=== PATIENT | male | born 1970 | race Caucasian/White ===

== ENCOUNTER 2021-11-15 15:41 | Emergency (ER) | payer OTHER, SELFPAY ==
[2021-11-15 16:08] LABS: Urine Blood Negative (Negative); Urine Glucose Negative (Negative); Urine Protein Negative (Negative)
[2021-11-15] MEDS ORDERED: NA CHLORIDE 0.9% 1,000 ML ONE ×2 (16:19→21:13)
[2021-11-15] MEDS ORDERED: THIAMINE 200 MG/2 ML INJ ONE (16:19)
[2021-11-15] MEDS ORDERED: LORazepam 2 MG/ML VIAL ONE ×3 (16:19→22:23)
[2021-11-15] MEDS ORDERED: FOLIC ACID 5 MG/ML VIAL ONE (16:20)
[2021-11-15] MEDS ORDERED: MULTIVITAMINS 10 ML VIAL (INJ) IV ONE (16:20)
[2021-11-15 16:25] LABS: Barbiturates NEGATIVE (NEGATIVE); Benzodiazepines NEGATIVE (NEGATIVE); Cocaine NEGATIVE (NEGATIVE); METHAMPHETAM NEGATIVE (NEGATIVE); Methadone NEGATIVE (NEGATIVE); Opiates NEGATIVE (NEGATIVE); Phencyclidine NEGATIVE (NEGATIVE); THC Cannibis NEGATIVE (NEGATIVE)
[2021-11-15 16:41] LABS: Absolute Lymphocytes (CBC) 2.5 K/uL (0.7-4.9); Hematocrit 46.3 % (39.6-49.0); Lymphocytes % 39.6 % (15.3-44.8); MCV 84.7 fL (80-100); MPV 6.6 fL (7.6-11.3); RBC Red Blood Cell Count 5.47 M/uL (4.33-5.43)
[2021-11-15 16:49] LABS: Protime INR 0.9
[2021-11-15 16:59] LABS: ALT/SGPT 41 U/L (12-78); AST/SGOT 26 U/L (15-37); Albumin 3.8 g/dL (3.4-5.0); Alkaline Phosphatase 39 U/L (45-117); BUN Blood Urea Nitrogen 4 mg/dL (7-18); Bicarbonate 26 mmol/L (21-32); Bilirubin Direct 0.1 mg/dL (0-0.2); Bilirubin Total 0.3 mg/dL (0.2-1.0); Glomerular Filtration Rate 107 ml/min (=/>90); Glucose Level 97 mg/dL (74-106); Potassium 3.9 mmol/L (3.5-5.1); Protein, Total 8.1 g/dL (6.4-8.2); Sodium Level 143 mmol/L (136-145)
--- NOTE | 2021-11-15 17:15 | EDPHYS ---
Physician Documentation [facility] Name: Aniceto Ledesma II Age: 51 yrs Sex: Male : 1970 Arrival Date: 11/15/2021 Time: 15:49 Bed 13 Private MD: ED Physician Domenic Warren HPI: 11/15 17:11 This 51 yrs old Male presents to ER via EMS with complaints of ETOH abuse, SI. rn 17:11 The patient presents to the emergency department with suicide ideation, and the patient rn has a plan, to shoot self. Onset: The symptoms/episode began/occurred at an unknown time. Associated signs and symptoms: Pertinent positives; PTSD, Pertinent negatives: abdominal pain, chest pain, delusions, fever, hallucinations. Severity of symptoms: At their worst the symptoms were moderate in the emergency department the symptoms are unchanged. The patient has experienced similar episodes in the past. The patient has not recently seen a physician. Historical: - Allergies: 16:39 No Known Allergies; jg9 - Home Meds: 16:39 None [Active]; jg9 - PMHx: 16:39 PTSD; jg9 18:03 Hypertensive disorder; jg9 - Immunization history:: Adult Immunizations not up to date. - Social history:: Smoking status: Patient denies any tobacco usage or history of. - Family history:: not pertinent. - Hospitalizations: : No recent hospitalization is reported. ROS: 17:11 Constitutional: Negative for fever, chills, and weight loss, Eyes: Negative for injury, rn pain, redness, and discharge, Neck: Negative for injury, pain, and swelling, Cardiovascular: Negative for chest pain, palpitations, and edema, Respiratory: Negative for shortness of breath, cough, wheezing, and pleuritic chest pain, Abdomen/GI: Negative for abdominal pain, nausea, vomiting, diarrhea, and constipation, Back: Negative for injury and pain, MS/Extremity: Negative for injury and deformity, Skin: Negative for injury, rash, and discoloration, Neuro: Negative for headache, weakness, numbness, tingling, and seizure. Exam: 17:11 Constitutional: This is a well developed, well nourished patient who is awake, alert, rn and in no acute distress. Sounds and acting intoxicated, but joking and pleasant. Head/Face: Normocephalic, atraumatic. Eyes: Periorbital areas with no swelling, redness, or edema. Cardiovascular: tachycardic, regular Respiratory: No increased work of breathing, no retractions or nasal flaring. Abdomen/GI: Soft, non-tender Skin: Warm, dry MS/ Extremity: Pulses equal, no cyanosis. Neuro: Awake and alert, GCS 15, oriented to person, place, time, and situation. Cranial nerves II-XII grossly intact. Motor strength 5/5 in all extremities. Sensory grossly intact. Vital Signs: 15:50 BP 152 / 96; Pulse 123; Resp 18 S; Temp 98.7; Pulse Ox 94% ; Weight 65.77 kg; Height 5 jg9 ft. 3 in. (160.02 cm) (R); Pain 0/10; 16:30 BP 126 / 99; Pulse 110; Resp 18; Pulse Ox 95% on R/A; jg9 17:00 BP 129 / 85; Pulse 101; Resp 22; Pulse Ox 97% on R/A; jg9 18:00 BP 112 / 95; Pulse 103; Resp 15 S; Pulse Ox 95% on R/A; jg9 19:17 BP 123 / 85; jg9 11/16 00:37 Pulse 68; Resp 14; Pulse Ox 95% on R/A; jb4 09:27 BP 143 / 92; Pulse 73; Resp 15; Temp 98.6; Pulse Ox 95% ; ll1 11/15 15:50 Body Mass Index 25.69 (65.77 kg, 160.02 cm) j9 MDM: 11/15 15:53 Patient medically screened. rn 17:11 Differential diagnosis: PTSD, SI. Data reviewed: vital signs, nurses notes, and as a rn result, I will admit patient. Counseling: I had a detailed discussion with the patient and/or guardian regarding: the historical points, exam findings, and any diagnostic results supporting the discharge/admit diagnosis, the need to transfer to another facility, for higher level of care, [facility] does not immediately have the required specialist. 11/16 09:07 ED course: Pt now much more sober, is apologetic for what happened last night, doesn't rn recall doing most of the things he did, told nurse doesn't even remember saying he was suicidal. Pt now denies suicidal ideations. Pt states sorry that he drank so much and would like to go home. Does not want to be transferred for psychiatric care. Again, denies suicidal ideations or plan. States gets like this when drinks but has never actually attempted to harm himself, blames PTSD from war.. 11/15 15:59 Order name: Acetaminophen; Complete Time: 21:24 rn 11/15 15:59 Order name: Basic Metabolic Panel; Complete Time: : rn 11/15 15:59 Order name: CBC with Diff; Complete Time: : rn 11/15 15:59 Order name: ETOH Level; Complete Time: : rn 11/15 15:59 Order name: Hepatic Function; Complete Time: : rn 11/15 15:59 Order name: PT-INR; Complete Time: : rn 11/15 15:59 Order name: Ptt, Activated; Complete Time: : rn 11/15 15:59 Order name: Salicylate; Complete Time: : rn 11/15 15:59 Order name: Urine Drug Screen; Complete Time: 21: rn 11/15 16:08 Order name: Urine Dipstick-Ancillary; Complete Time: 21:24 EDMS 11/15 16:48 Order name: COVID-19 SARS RT PCR (Document "Date of Onset" if Symptomatic); Complete jg9 Time: 21:11/16 07:23 Order name: ETOH Level kj1 11/15 15:59 Order name: EKG; Complete Time: 15:59 rn 11/15 15:59 Order name: EKG - Nurse/Tech; Complete Time: 16:08 rn 11/15 15:59 Order name: IV Saline Lock; Complete Time: 16:45 rn 11/15 15:59 Order name: Labs collected and sent; Complete Time: 16:46 rn 11/15 15:59 Order name: Suicide Precautions; Complete Time: 16:46 rn 11/15 15:59 Order name: Suicide Screening ([place]); Complete Time: 16:46 rn 11/15 15:59 Order name: Urine Dipstick-Ancillary (obtain specimen); Complete Time: 16:46 rn 11/15 16:54 Order name: Diet Finger Food; Complete Time: 16:54 jg9 11/16 08:51 Order name: Diet Regular: finger foods SI; Complete Time: 08:51 ss Administered Medications: 11/15 16:45 Drug: Ativan (LORazepam) 0.5 mg {Note: RASS--1.} Route: IVP; Site: right antecubital; jg9 17:11 Follow up: Response: No adverse reaction; RASS: Light sedation (-2) jg9 16:45 Drug: Banana Bag - (NS 0.9% 1000 ml, foLIC Acid 1 mg, Thiamine 100 mg, Multivitamin 1 jg9 amp) Route: IV; Rate: calculated rate; Site: right forearm; 20:30 Follow up: Response: No adverse reaction; IV Status: Completed infusion jb4 18:04 Drug: Lisinopril 10 mg Route: PO; jg9 19:17 Follow up: Response: No adverse reaction; Blood pressure is lowered jg9 21:15 Drug: NS 0.9% 1000 ml Route: IV; Rate: 1000 ml; Site: right antecubital; jb4 22:25 Follow up: Response: No adverse reaction; IV Status: Pt ripped IV line, poored fluids jb4 in the floor. 21:41 Drug: Ativan (LORazepam) 1 mg Route: IVP; Site: right antecubital; jb4 11/16 06:24 Follow up: Response: No adverse reaction kd3 11/15 22:24 Drug: Ativan (LORazepam) 1 mg Route: IVP; Site: right antecubital; jb4 11/16 06:24 Follow up: Response: No adverse reaction kd3 11/15 22:39 Drug: Geodon (ziprasidone) 20 mg Route: IM; Site: left gluteus; jb4 11/16 06:24 Follow up: Response: No adverse reaction kd3 Disposition Summary: 11/16/21 09:09 Discharge Ordered Location: Home rn Problem: new(11/16/21 09:09) rn Symptoms: have improved(11/16/21 09:09) rn Condition: Stable(11/16/21 09:09) rn Diagnosis - Alcohol abuse with intoxication, uncomplicated rn Followup: rn - With: Private Physician - When: As needed - Reason: Recheck today's complaints, Re-evaluation by your physician Discharge Instructions: - Discharge Summary Sheet rn - Alcohol Intoxication rn Forms: - Medication Reconciliation Form rn - Thank You Letter rn - Antibiotic admissions rn - Prescription Opioid Use rn Signatures: Dispatcher [employer] EDDomenic Schroeder MD MD cha Nieto, Roman, MD MD rn Bryson, James RN RN jb4 Bridgette Gaitan RN RN jg9 Karrie Graham RN kd3 Corrections: (The following items were deleted from the chart) 11/15 21:26 17:14 Dr. odin mercedes 17:14 Psych Facility odin mercedes 21:26 Dr[facility] daren mercedes 11/16 09:11/15 17:14 Higher level of care rn rn 11/16 09:08 11/15 17:14 Stable rn rn 11/16 09:08 11/15 17:14 new rn rn 11/16 09:08 11/15 17:14 are unchanged rn rn 11/16 09:08 11/15 17:14 Suicidal ideations rn rn 11/16 09:08 11/15 17:14 Alcohol abuse with intoxication, unspecified rn rn 11/16 09:08 11/15 21:26 [facility] daren newby 12 09:08 11/15 21:26 Dr[facility] mercedes rn 11/16 09:08 11/15 21:26 Major depressive disorder, recurrent, moderate daren rn
--- NOTE | 2021-11-15 17:15 | ER ---
Nurse's Notes [facility] Name: Aniceto Ledesma II Age: 51 yrs Sex: Male : 1970 Arrival Date: 11/15/2021 Time: 15:49 Bed 13 Private MD: Diagnosis: Alcohol abuse with intoxication, uncomplicated Presentation: 11/15 15:50 Chief complaint: EMS states: SI with no plan, patient told the police he wanted to hurt jg9 himself, patient here from [facility], ETOH+ and wants help with his addiction. Coronavirus screen: Vaccine status: Patient reports being unvaccinated. Ebola Screen: Patient negative for fever greater than or equal to 101.5 degrees Fahrenheit, and additional compatible Ebola Virus Disease symptoms Patient denies exposure to infectious person. Patient denies travel to an Ebola-affected area in the 21 days before illness onset. Initial Sepsis Screen: Does the patient meet any 2 criteria? No. Patient's initial sepsis screen is negative. Does the patient have a suspected source of infection? No. Patient's initial sepsis screen is negative. Risk Assessment: Do you want to hurt yourself or someone else? Patient reports desire/thoughts of hurting themselves or someone else. Provider notified. Onset of symptoms is unknown. 15:50 Method Of Arrival: EMS: [facility] 9 15:50 Acuity: FRANCISCA 2 kd3 Triage Assessment: 15:50 General: Appears under the influence of alcohol. Behavior is cooperative, anxious, jg9 under the influence. Pain: Denies pain. Historical: - Allergies: 16:39 No Known Allergies; jg9 - Home Meds: 16:39 None [Active]; jg9 - PMHx: 16:39 PTSD; jg9 18:03 Hypertensive disorder; jg9 - Immunization history:: Adult Immunizations not up to date. - Social history:: Smoking status: Patient denies any tobacco usage or history of. - Family history:: not pertinent. - Hospitalizations: : No recent hospitalization is reported. Screenin:41 Abuse screen: Denies threats or abuse. Denies injuries from another. Nutritional jg9 screening: hx of alcohol abuse . Tuberculosis screening: No symptoms or risk factors identified. Fall Risk None identified. Assessment: 16:00 Reassessment: No changes from previously documented assessment. Patient and/or family jg9 updated on plan of care and expected duration. Pain level reassessed. Patient is alert, oriented x 3, equal unlabored respirations, skin warm/dry/pink. 17:00 Reassessment: No changes from previously documented assessment. Patient and/or family jg9 updated on plan of care and expected duration. Pain level reassessed. Patient is alert, oriented x 3, equal unlabored respirations, skin warm/dry/pink. 18:00 Reassessment: No changes from previously documented assessment. Patient and/or family jg9 updated on plan of care and expected duration. Pain level reassessed. Patient is alert, oriented x 3, equal unlabored respirations, skin warm/dry/pink. 19:16 Reassessment: No changes from previously documented assessment. Patient and/or family jg9 updated on plan of care and expected duration. Pain level reassessed. Patient is alert, oriented x 3, equal unlabored respirations, skin warm/dry/pink. 20:30 Reassessment: Pt is restless, but polite. Continues to try to disconnect IV and leave jb4 his room. Must be redirected and reoriented. Continues to try to sneak out when staff is not at the door. 21:45 Reassessment: Patient appears in no apparent distress at this time. Patient and/or jb4 family updated on plan of care and expected duration. Pain level reassessed. Patient is alert, oriented x 3, equal unlabored respirations, skin warm/dry/pink. 22:30 Reassessment: Pt attempted to run out of ED. States " I am trying to find my jb4 [place], have you seen it?" Provider notified, see MAR for orders. 23:00 Reassessment: Pt now resting in bed with eyes closed, respirations are even and jb4 unlabored with no s/s of pain or distress noted. 11/16 03:00 Reassessment: Patient appears in no apparent distress at this time. No changes from jb4 previously documented assessment. Patient and/or family updated on plan of care and expected duration. Pain level reassessed. 04:20 Reassessment: No changes from previously documented assessment. Patient and/or family kd3 updated on plan of care and expected duration. Pain level reassessed. Patient is alert, oriented x 3, equal unlabored respirations, skin warm/dry/pink. 05:30 Reassessment: No changes from previously documented assessment. Patient and/or family kd3 updated on plan of care and expected duration. Pain level reassessed. Patient is alert, oriented x 3, equal unlabored respirations, skin warm/dry/pink. 06:23 Reassessment: Patient appears in no apparent distress at this time. No changes from kd3 previously documented assessment. Patient and/or family updated on plan of care and expected duration. Pain level reassessed. Patient is alert, oriented x 3, equal unlabored respirations, skin warm/dry/pink. 07:00 Reassessment: No changes from previously documented assessment. report received from ll1 evening or night nurse supervisor RN. Sitter requested. 07:40 Reassessment: No changes from previously documented assessment. sitter at bedside. ll1 Still resting. 08:00 Reassessment: No changes from previously documented assessment. Patient and/or family ll1 updated on plan of care and expected duration. Pain level reassessed. Patient is alert, oriented x 3, equal unlabored respirations, skin warm/dry/pink. 08:55 Reassessment: No changes from previously documented assessment. Patient and/or family ll1 updated on plan of care and expected duration. Pain level reassessed. Patient is alert, oriented x 3, equal unlabored respirations, skin warm/dry/pink. not feeling suicidal or homicidal. Dr. Simpson informed. 09:27 Reassessment: No changes from previously documented assessment. Patient and/or family ll1 updated on plan of care and expected duration. Pain level reassessed. Patient is alert, oriented x 3, equal unlabored respirations, skin warm/dry/pink. Psych: 11/15 16:42 [place] Suicide Severity Screening: In the past month, have you wished you were jg9 or wished you could go to sleep and not wake up? Patient responds "No." "In the past month, have you actually had any thoughts of killing yourself?" Patient responds "yes." Based off the client's response additional [place] suicide severity screening questions to be further documented on paper forms. "In your lifetime, have you ever done anything, started to do anything, or prepared to do anything to end your life?" Patient responds "no.". Subjective: Patient's mood is pleasantly happy Delusions are denied, Hallucinations are denied Having thoughts of suicide. Denies suicidal plan. Objective: Patient is cooperative, Speech is slurred, Affect is appropriate, Patient has mutilated themselves by n/a. Interventions: Removed personal items and placed in bag. Patient placed in hospital gown. Searched person for dangerous items. Urine collected and sent for urine drug test. Belonging list filled out. Safety Checks: Personal items have been removed. Door is open. No visitors are present at this time. sitter at door entrance. Patient uses of liquor, daily. Last use was 5 hours ago. Patient does not have a history of DTs. Patient uses benzodiazepines Patient uses cocaine, daily. Commitment: Patient will be a voluntary commitment. Vital Signs: 15:50 BP 152 / 96; Pulse 123; Resp 18 S; Temp 98.7; Pulse Ox 94% ; Weight 65.77 kg; Height 5 jg9 ft. 3 in. (160.02 cm) (R); Pain 0/10; 16:30 BP 126 / 99; Pulse 110; Resp 18; Pulse Ox 95% on R/A; jg9 17:00 BP 129 / 85; Pulse 101; Resp 22; Pulse Ox 97% on R/A; jg9 18:00 BP 112 / 95; Pulse 103; Resp 15 S; Pulse Ox 95% on R/A; jg9 19:17 BP 123 / 85; jg9 11/16 00:37 Pulse 68; Resp 14; Pulse Ox 95% on R/A; jb4 09:27 BP 143 / 92; Pulse 73; Resp 15; Temp 98.6; Pulse Ox 95% ; ll1 11/15 15:50 Body Mass Index 25.69 (65.77 kg, 160.02 cm) jg9 ED Course: 11/15 15:49 Patient arrived in ED. jg9 15:53 Brent Simpson MD is Attending Physician. rn 16:08 Bridgette Gaitan RN is Primary Nurse. jg9 16:30 Inserted saline lock: 22 gauge in right forearm, using aseptic technique. Blood jg9 collected. IV discontinued, patient ripped out accidently. 16:39 Triage completed. jg9 16:42 Arm band placed on right wrist. jg9 16:42 Patient has correct armband on for positive identification. Bed in low position. Call jg9 light in reach. Side rails up X 1. 19:15 Inserted saline lock: 20 gauge in right antecubital area, using aseptic technique. j9 21:24 Attending Physician role handed off by Brent Simpson MD [facility] 21:24 Domenic Warren MD is Attending Physician. [facility] 11/16 09:27 No provider procedures requiring assistance completed. IV discontinued, intact, ll1 bleeding controlled, No redness/swelling at site. Pressure dressing applied. Administered Medications: 11/15 16:45 Drug: Ativan (LORazepam) 0.5 mg {Note: RASS--1.} Route: IVP; Site: right antecubital; j9 17:11 Follow up: Response: No adverse reaction; RASS: Light sedation (-2) 9 16:45 Drug: Banana Bag - (NS 0.9% 1000 ml, foLIC Acid 1 mg, Thiamine 100 mg, Multivitamin 1 jg9 amp) Route: IV; Rate: calculated rate; Site: right forearm; 20:30 Follow up: Response: No adverse reaction; IV Status: Completed infusion 4 18:04 Drug: Lisinopril 10 mg Route: PO; j9 19:17 Follow up: Response: No adverse reaction; Blood pressure is lowered 9 21:15 Drug: NS 0.9% 1000 ml Route: IV; Rate: 1000 ml; Site: right antecubital; jb4 22:25 Follow up: Response: No adverse reaction; IV Status: Pt ripped IV line, poored fluids jb4 in the floor. 21:41 Drug: Ativan (LORazepam) 1 mg Route: IVP; Site: right antecubital; 4 11/16 06:24 Follow up: Response: No adverse reaction 3 11/15 22:24 Drug: Ativan (LORazepam) 1 mg Route: IVP; Site: right antecubital; 4 11/16 06:24 Follow up: Response: No adverse reaction 3 11/15 22:39 Drug: Geodon (ziprasidone) 20 mg Route: IM; Site: left gluteus; jb4 11/16 06:24 Follow up: Response: No adverse reaction kd3 Medication: 06:23 VIS not applicable for this client. kd3 Outcome: 11/15 17:14 ER care complete, transfer ordered by . odin 11/16 09:09 Discharge ordered by . odin :28 Discharged to home ambulatory. ll1 :28 Condition: stable 09:28 Discharge instructions given to patient, Instructed on discharge instructions, follow up and referral plans. Demonstrated understanding of instructions, follow-up care. 09:28 Patient left the ED. ll1 Signatures: Domenic Warren MD MD cha Nieto, Roman, MD MD rn Bryson, James RN RN jb4 Stuart Velez RN RN ll1 Karrie Graham RN RN kd3 Bridgette Gaitan RN RN jg9 Corrections: (The following items were deleted from the chart) 11/15 16:46 16:15 NS 0.9% 1000 ml IV at 1000 ml in right femoral jg9 jg9 19:16 16:30 Inserted saline lock: 22 gauge in right forearm, using aseptic technique. Blood jg9 collected. jg9 19:27 15:50 Acuity: FRANCISCA 3 jg9 kd3
[2021-11-15] MEDS ORDERED: lisinopriL 10 MG TAB ONE (18:09)
[2021-11-15] MEDS ORDERED: lisinopriL 20 MG TAB ONE (18:09)
[2021-11-15] MEDS ORDERED: ZIPRASIDONE MESYLA 20 MG/VIAL IM ONE (22:35)
[2021-11-15] MEDS ORDERED: WATER FOR INJ,STERILE 10 ML ONE (22:35)
--- NOTE | 2021-11-16 08:21 | EKG ---
Test Date: 2021-11-15 Test Time: 16:01:51 Masonry Teacher: DARRIAN MEASUREMENT RESULTS: Intervals: Rate: 114 ID: [id number] QRSD: 86 QT: 320 QTc: 441 [place]: P: 44 ID: [id number] QRS: 55 T: 5 INTERPRETIVE STATEMENTS: Sinus tachycardia Otherwise normal ECG No previous ECG available for comparison Electronically Signed On 11-16-21 08:18:25 CDT by Artem Reyes
[2021-11-16 10:20] VITALS: O2SAT 95
[2021-11-16 10:24] VITALS: BP 143/92; TEMP 98.6
== END 2021-11-16 09:28 | disposition home or self-care (01) ==
LOC: ER 15:41
DX: F10.129 Alcohol abuse with intoxication, unspecified (principal); R45.851 Suicidal ideations; F43.10 Post-traumatic stress disorder, unspecified; I10 Essential (primary) hypertension; Z20.822 Contact with and (suspected) exposure to COVID-19
CPT/HCPCS: 93005; 85025; 80048; 36415; 80320 ×2; 80329 ×2; 85610; 80076; 85730; 81003; 80307; U0003; J3411; J3486; J7030 ×2; 96361; 96365; 96366; 96372; 96375; 99285

== ENCOUNTER 2022-07-28 13:31 | Emergency (ER) | payer OTHER ==
[2022-07-28] MEDS ORDERED: DIAZEPAM 2 MG TABLET ONE (14:02)
[2022-07-28] MEDS ORDERED: NA CHLORIDE 0.9% 1,000 ML ONE (14:02)
[2022-07-28 14:30] LABS: RBC Red Blood Cell Count 5.33 M/uL (4.33-5.43)
[2022-07-28 14:31] LABS: Absolute Lymphocytes (CBC) 1.7 K/uL (0.7-4.9); Hematocrit 46.6 % (39.6-49.0); Lymphocytes % 34.2 % (15.3-44.8); MCV 87.3 fL (80-100); MPV 7.3 fL (7.6-11.3)
[2022-07-28 14:44] LABS: Specific Gravity < 1.005 (1.005-1.030); Urine Bilirubin NEGATIVE (Negative); Urine Blood Negative (Negative); Urine Clarity Clear (Clear); Urine Color Colorless (Yellow); Urine Glucose NEGATIVE (Negative); Urine Protein NEGATIVE (Negative); Urine Urobilinogen Normal (Normal); Urine pH 5.5 (5.0-7.0)
[2022-07-28 14:48] LABS: Protime INR 0.85
[2022-07-28 15:09] LABS: Barbiturates NEGATIVE (NEGATIVE); Benzodiazepines NEGATIVE (NEGATIVE); Cocaine NEGATIVE (NEGATIVE); METHAMPHETAM NEGATIVE (NEGATIVE); Methadone NEGATIVE (NEGATIVE); Opiates NEGATIVE (NEGATIVE); Phencyclidine NEGATIVE (NEGATIVE); THC Cannibis NEGATIVE (NEGATIVE)
[2022-07-28] MEDS ORDERED: PANTOPRAZOLE 40 MG INJ ONE (15:14)
[2022-07-28 15:37] LABS: ALT/SGPT 131 U/L (16-61); Albumin 3.4 g/dL (3.4-5.0); Alkaline Phosphatase 33 U/L (45-117); BUN Blood Urea Nitrogen 7 mg/dL (7-18); Bicarbonate 27 mEq/L (21-32); Bilirubin Direct 0.1 mg/dL (0-0.2); Bilirubin Total 0.4 mg/dL (0.2-1.0); Glomerular Filtration Rate 111 ml/min (=/>90); Glucose Level 100 mg/dL (74-106); Protein, Total 7.3 g/dL (6.4-8.2); Sodium Level 140 mEq/L (136-145); Troponin High Sensitivity 8.4 pg/mL (<58.9)
[2022-07-28 15:40] LABS: AST/SGOT 154 U/L (15-37); Potassium 4.1 mEq/L (3.5-5.1)
--- NOTE | 2022-07-28 15:47 | EKG ---
Test Date: 2022-07-28 Test Time: 14:03:56 Manufacturing Engineer [employer]: IDA MEASUREMENT RESULTS: Intervals: Rate: 109 MD: 126 QRSD: 88 QT: 318 QTc: 428 [place]: P: 49 MD: 126 QRS: 70 T: 10 INTERPRETIVE STATEMENTS: Sinus tachycardia Compared to ECG 11/15/2021 16:01:51 No significant changes Electronically Signed On 07-28-22 15:47:25 CDT by Suhail Ruth
--- NOTE | 2022-07-28 17:51 | ER ---
Nurse's Notes [facility] Name: Aniceto Ledesma II Age: 51 yrs Sex: Male : 1970 Arrival Date: 07/28/2022 Time: 13:34 Bed 18 Private MD: Diagnosis: Alcohol abuse with intoxication;Chest pain, unspecified;Esophagitis, unspecified Presentation: 07/28 13:50 Chief complaint: Patient states: chest pain and SOB x 1 week ago. Pt smells of alcohol, aa5 reports he drank beer 30 mins [employer]AC[employer]. 13:50 Coronavirus screen: shortness of breath. Ebola Screen: Patient denies travel to an [place] [employer] Ebola-affected area in the 21 days before illness onset. Initial Sepsis Screen: Does the patient meet any 2 criteria? HR > 90 bpm. Does the patient have a suspected source of infection? No. Patient's initial sepsis screen is negative. Risk Assessment: Do you want to hurt yourself or someone else? Patient reports no desire to harm self or others. Onset of symptoms was July 2022. 13:50 Method Of Arrival: Ambulatory aa5 13:50 Acuity: FRANCISCA 3 aa5 Historical: - Allergies: 14:02 No Known Allergies; aa5 - PMHx: 14:02 Hypertensive disorder; PTSD; ETOH abuse; aa5 - Immunization history:: Adult Immunizations unknown. - Social history:: Smoking status: Patient reports the use of cigarette tobacco products, chewing tobacco. Screenin:38 [facility] ED Fall Risk Assessment (Adult) History of falling in the last 3 months, kc6 including since admission No falls in past 3 months (0 pts) Confusion or Disorientation No (0 pts) Intoxicated or Sedated No (0 pts) Impaired Gait No (0 pts) Mobility Assist Device Used No (0 pt) Altered Elimination No (0 pt) Score/Fall Risk Level 0 - 2 = Low Risk Oriented to surroundings, Maintained a safe environment, Educated pt \T\ family on fall prevention, incl call for assistance when getting out of bed, Assessed \T\ reinforced patient's understanding of fall precautions, Hourly rounding (assess needs \T\ fall precautionary measures) done. Abuse screen: Denies threats or abuse. Denies injuries from another. Nutritional screening: No deficits noted. Tuberculosis screening: No symptoms or risk factors identified. Assessment: 14:37 General: Appears in no apparent distress. comfortable, Behavior is cooperative, kc6 appropriate for age, anxious, Smells of alcohol. Pain: Complains of pain in chest Pain does not radiate. Pain began 2 weeks ago Is continuous, Alleviated by nothing. Aggravated by increased activity, Also complains of no other associated symptoms. Neuro: Larry Agitation-Sedation Scale (RASS): 0 - Alert and Calm Level of Consciousness is awake, alert, obeys commands, Oriented to person, place, time, situation, Appropriate for age. Cardiovascular: Heart tones S1 S2 present Capillary refill < 3 seconds Rhythm is sinus tachycardia. Respiratory: Reports shortness of breath Airway is patent Trachea midline Respiratory effort is even, unlabored, Respiratory pattern is regular, symmetrical. GI: No signs and/or symptoms were reported involving the gastrointestinal system. : No signs and/or symptoms were reported regarding the genitourinary system. EENT: No signs and/or symptoms were reported regarding the EENT system. Derm: No signs and/or symptoms reported regarding the dermatologic system. Skin is intact, Skin is pink, warm \T\ dry. Musculoskeletal: No signs and/or symptoms reported regarding the musculoskeletal system. Circulation, motion, and sensation intact. Capillary refill < 3 seconds, Range of motion: intact in all extremities. 15:24 Reassessment: Patient appears in no apparent distress at this time. No changes from kc6 previously documented assessment. Patient and/or family updated on plan of care and expected duration. Pain level reassessed. Patient is alert, oriented x 3, equal unlabored respirations, skin warm/dry/pink. 16:24 Reassessment: Patient appears in no apparent distress at this time. No changes from kc6 previously documented assessment. Patient and/or family updated on plan of care and expected duration. Pain level reassessed. Patient is alert, oriented x 3, equal unlabored respirations, skin warm/dry/pink. 17:20 Reassessment: Patient appears in no apparent distress at this time. No changes from kc6 previously documented assessment. Patient and/or family updated on plan of care and expected duration. Pain level reassessed. Patient is alert, oriented x 3, equal unlabored respirations, skin warm/dry/pink. Vital Signs: 13:50 BP 156 / 100; Pulse 123; Resp 20 S; Temp 98.4(O); Pulse Ox 92% on R/A; Weight 65.77 kg aa5 (R); Height 5 ft. 3 in. (R); 15:24 BP 147 / 91; Pulse 95; Resp 21 S; Pulse Ox 92% on R/A; kc6 17:30 BP 141 / 93; Pulse 96; Resp 20 S; Pulse Ox 97% on R/A; kc6 13:50 Body Mass Index 25.69 (65.77 kg, 160.02 cm) aa5 ED Course: 13:34 Patient arrived in ED. mr 13:44 ErlindaCherelle, [facility] snw 13:44 Haja Espinosa MD is Attending Physician. snw 13:51 Arm band placed on Patient placed in an exam room, on a stretcher. aa5 13:55 Debi Cespedes, CAMILA is Primary Nurse. kc6 14:02 Triage completed. aa5 14:24 Inserted saline lock: 20 gauge in right forearm, using aseptic technique. Blood kc6 collected. Patient maintains SpO2 saturation greater than 95% on room air. 14:38 Patient has correct armband on for positive identification. Bed in low position. Call kc6 light in reach. Side rails up X2. Adult w/ patient. Client placed on continuous cardiac and pulse oximetry monitoring. NIBP monitoring applied. monitor technician on. 18:08 No provider procedures requiring assistance completed. IV discontinued, intact, kc6 bleeding controlled, No redness/swelling at site. Pressure dressing applied. Administered Medications: 14:22 Drug: NS 0.9% IV 1000 ml Route: IV; Rate: 1 bolus; Site: right forearm; kc6 15:17 Follow up: Response: No adverse reaction; IV Status: Completed infusion; IV Intake: kc6 1000ml 14:23 Drug: Diazepam IVP 10 mg {Note: PO. Cherelle notified.} Route: IVP; Site: Other; kc6 15:17 Follow up: Response: No adverse reaction; Anxiety decreased kc6 15:17 Drug: Pantoprazole IVP 80 mg Route: IVP; Site: right forearm; kc6 Medication: 18:09 VIS not applicable for this client. kc6 Intake: 15:17 IV: 1000ml; Total: 1000ml. kc6 Outcome: 17:51 Discharge ordered by . snw 18:08 Discharged to home ambulatory, with significant other. kc6 18:08 Condition: stable 18:08 Discharge instructions given to patient, Instructed on discharge instructions, follow up and referral plans. medication usage, Demonstrated understanding of instructions, follow-up care, medications, Prescriptions given X 2. 18:09 Patient left the ED. kc6 Signatures: Cherelle Coffey, COAT AGENT-C COAT AGENT-Csnw Flaca Saul, Cora, RN RN aa5 Debi Cespedes RN RN kc6 Corrections: (The following items were deleted from the chart) 16:28 16:24 Reassessment: Patient appears in no apparent distress at this time. No changes kc6 from previously documented assessment. kc6
--- NOTE | 2022-07-28 17:51 | EDPHYS ---
Physician Documentation [facility] Name: Aniceto Ledesma II Age: 51 yrs Sex: Male : 1970 Arrival Date: 07/28/2022 Time: 13:34 Bed 18 Private MD: ED Physician Haja Espinosa HPI: 07/28 14:15 This 51 yrs old Male presents to ER via Ambulatory with complaints of Chest Pain, snw Breathing Difficulty. 14:15 The patient or guardian reports chest pain that is located primarily in the substernal snw area. Onset: suddenly. The pain radiates to Associated signs and symptoms: Pertinent positives: shortness of breath, vomiting. The chest pain is described as palpitations. Duration: The patient or guardian reports a single episode. Severity of pain: At its worst the pain was moderate. It is unknown whether or not the patient has had similar symptoms in the past. denies, pt states he is an alcoholic and last drank beer 30min ago. Historical: - Allergies: 14:02 No Known Allergies; aa5 - PMHx: 14:02 Hypertensive disorder; PTSD; ETOH abuse; aa5 - Immunization history:: Adult Immunizations unknown. - Social history:: Smoking status: Patient reports the use of cigarette tobacco products, chewing tobacco. ROS: 14:19 Constitutional: Negative for fever, chills, and weight loss, Eyes: Negative for injury, snw pain, redness, and discharge, ENT: Negative for injury, pain, and discharge, Neck: Negative for injury, pain, and swelling, Abdomen/GI: Negative for abdominal pain, nausea, vomiting, diarrhea, and constipation, Back: Negative for injury and pain, : Negative for injury, bleeding, discharge, and swelling, MS/Extremity: Negative for injury and deformity, Skin: Negative for injury, rash, and discoloration, Neuro: Negative for headache, weakness, numbness, tingling, and seizure, Psych: Negative for depression, anxiety, suicide ideation, homicidal ideation, and hallucinations. 14:19 Cardiovascular: Positive for chest pain, of the chest, palpitations. 14:19 Respiratory: Positive for shortness of breath. Exam: 14:12 Eyes: Pupils equal round and reactive to light, extra-ocular motions intact. Lids and snw lashes normal. Conjunctiva and sclera are non-icteric and not injected. Cornea within normal limits. Periorbital areas with no swelling, redness, or edema. ENT: Nares patent. No nasal discharge, no septal abnormalities noted. Tympanic membranes are normal and external auditory canals are clear. Oropharynx with no redness, swelling, or masses, exudates, or evidence of obstruction, uvula midline. Mucous membranes moist. Neck: Trachea midline, no thyromegaly or masses palpated, and no cervical lymphadenopathy. Supple, full range of motion without nuchal rigidity, or vertebral point tenderness. No Meningismus. Chest/axilla: Normal chest wall appearance and motion. Nontender with no deformity. No lesions are appreciated. 14:12 Respiratory: Lungs have equal breath sounds bilaterally, clear to auscultation and percussion. No rales, rhonchi or wheezes noted. No increased work of breathing, no retractions or nasal flaring. Abdomen/GI: Soft, non-tender, with normal bowel sounds. No distension or tympany. No guarding or rebound. No evidence of tenderness throughout. Back: No spinal tenderness. No costovertebral tenderness. Full range of motion. MS/ Extremity: Pulses equal, no cyanosis. Neurovascular intact. Full, normal range of motion. Neuro: Awake and alert, GCS 15, oriented to person, place, time, and situation. Cranial nerves II-XII grossly intact. Motor strength 5/5 in all extremities. Sensory grossly intact. Cerebellar exam normal. Normal gait. 14:12 Constitutional: The patient appears awake, anxious, restless, uncomfortable. 14:12 Head/face: Noted is flushed. 14:12 Cardiovascular: Rate: tachycardic, Rhythm: irregular, Pulses: no pulse deficits are appreciated, Edema: is not appreciated. 14:12 Skin: Appearance: flushing, noted on the face. 14:12 Psych: Affect is animated, hx of ETOH abuse. Vital Signs: 13:50 BP 156 / 100; Pulse 123; Resp 20 S; Temp 98.4(O); Pulse Ox 92% on R/A; Weight 65.77 kg aa5 (R); Height 5 ft. 3 in. (R); 15:24 BP 147 / 91; Pulse 95; Resp 21 S; Pulse Ox 92% on R/A; kc6 17:30 BP 141 / 93; Pulse 96; Resp 20 S; Pulse Ox 97% on R/A; kc6 13:50 Body Mass Index 25.69 (65.77 kg, 160.02 cm) aa5 MDM: 13:45 Patient medically screened. snw 14:20 Differential diagnosis: abnormal EKG, acute myocardial infarction, anxiety, coronary snw artery disease esophagitis, gastritis, detox. The patient was not given aspirin in the Emergency Department. Not indicated due to patient's past medical history. Data reviewed: vital signs, nurses notes. 07/28 13:54 Order name: Acetaminophen; Complete Time: 15:45 w 07/28 13:54 Order name: Basic Metabolic Panel; Complete Time: 15:45 w 07/28 13:54 Order name: CBC with Diff; Complete Time: 15:01 w 07/28 13:54 Order name: ETOH Level; Complete Time: 15:01 w 07/28 13:54 Order name: Hepatic Function; Complete Time: 15:45 [facility] 07/28 13:54 Order name: PT-INR; Complete Time: 15:01 [facility] 07/28 13:54 Order name: Ptt, Activated; Complete Time: 15:01 w 07/28 13:54 Order name: Salicylate; Complete Time: 15:33 w 07/28 13:54 Order name: Urinalysis w/ reflexes; Complete Time: 15:01 w 07/28 13:54 Order name: Urine Drug Screen; Complete Time: 15:10 w 07/28 13:54 Order name: Troponin HS; Complete Time: 15:45 [facility] 07/28 13:54 Order name: EKG; Complete Time: 13:55 07/28 13:54 Order name: EKG - Nurse/Tech; Complete Time: 14:02 w 07/28 13:54 Order name: IV Saline Lock; Complete Time: 14:24 [facility] 07/28 13:54 Order name: Labs collected and sent; Complete Time: 14:24 [facility] 07/28 13:54 Order name: Suicide Screening ([place]); Complete Time: 14:02 [facility] 07/28 14:34 Order name: Labs - recollect needed: recollect 2 light green; Complete Time: 14:48 bd EC:12 Rate is 109 beats/min. Rhythm is regular. QRS [place] is Normal. QT interval is normal. snw Clinical impression: Sinus tachycardia. Administered Medications: 14:22 Drug: NS 0.9% IV 1000 ml Route: IV; Rate: 1 bolus; Site: right forearm; kc6 15:17 Follow up: Response: No adverse reaction; IV Status: Completed infusion; IV Intake: kc6 1000ml 14:23 Drug: Diazepam IVP 10 mg {Note: PO. Cherelle notified.} Route: IVP; Site: Other; kc6 15:17 Follow up: Response: No adverse reaction; Anxiety decreased kc6 15:17 Drug: Pantoprazole IVP 80 mg Route: IVP; Site: right forearm; kc6 Disposition: 18:44 I agree with the assessment and plan of care. [email or web address] Disposition Summary: 07/28/22 17:51 Discharge Ordered Location: Home snw Condition: Stable snw Diagnosis - Alcohol abuse with intoxication snw - Chest pain, unspecified snw - Esophagitis, unspecified snw Followup: snw - With: Emergency Department - When: As needed - Reason: Worsening of condition Followup: snw - With: Private Physician - When: 2 - 3 days - Reason: Recheck today's complaints, Continuance of care, Re-evaluation by your physician Discharge Instructions: - Discharge Summary Sheet snw - Alcohol Intoxication snw - Nonspecific Chest Pain, Adult snw - Esophagitis snw - Gastroesophageal Reflux Disease, Adult snw - Hypertension, Adult snw - Alcohol Abuse and Nutrition snw - How to Take Your Blood Pressure, [id number] snw - Form - Blood Pressure Record Sheet snw Forms: - Work release form snw - Medication Reconciliation Form snw - Thank You Letter snw - Antibiotic Education snw - Prescription Opioid Use snw Prescriptions: - Protonix 40 mg Oral Tablet - take 1 tablet by ORAL route once daily; 30 tablet; Refills: 0, Product snw Selection Permitted - Pepcid 20 mg Oral Tablet - take 1 tablet by ORAL route once daily; 20 tablet; Refills: 0, Product snw Selection Permitted Signatures: Dispatcher [employer] Cyndee Christian Shelly, DESTINEY-C PROFESSOR OF EARLY CHILDHOOD EDUCATION-Csnw Cora Jacobson, RN RN aa5 Haja Espinosa MD MD [email or web address] Debi Cespedes RN RN kc6
[2022-07-28 18:55] VITALS: TEMP 98.4
[2022-07-28 19:08] VITALS: BP 141/93; O2SAT 97
== END 2022-07-28 18:09 | disposition home or self-care (01) ==
LOC: ER 13:31
DX: R07.9 Chest pain, unspecified (principal); F10.129 Alcohol abuse with intoxication, unspecified; K20.90 Esophagitis, unspecified without bleeding; I10 Essential (primary) hypertension; F43.10 Post-traumatic stress disorder, unspecified; F17.210 Nicotine dependence, cigarettes, uncomplicated
CPT/HCPCS: 93005; 85025; 80048; 36415; 85610; 80076; 85730; 81003; 84484; 80307; C9113; J7030; G0480 ×3

== ENCOUNTER 2022-09-07 11:27 | Emergency (ER) | payer OTHER ==
[2022-09-07] MEDS ORDERED: ONDANSETRON 4 MG/2 ML VIAL ONE (11:46)
[2022-09-07 11:48] LABS: Hematocrit 48.8 % (39.6-49.0); Lymphocytes % 7.5 % (15.3-44.8); MPV 8.2 fL (7.6-11.3); RBC Red Blood Cell Count 5.36 M/uL (4.33-5.43)
[2022-09-07 12:06] LABS: Troponin High Sensitivity 7.2 pg/mL (<58.9)
--- NOTE | 2022-09-07 12:38 | RAD REPORT ---
EXAM DESCRIPTION: RAD - Chest Single View - 09/07/2022 12:31 pm CLINICAL HISTORY: CHEST PAIN Chest pain. COMPARISON: CHEST PA AND LAT 2 VIEW dated 12/09/2008 FINDINGS: Portable technique limits examination quality. The lungs are grossly clear. The heart is normal in size. No displaced fractures. IMPRESSION: No acute intrathoracic process suspected.
[2022-09-07] MEDS ORDERED: PANTOPRAZOLE 40 MG INJ ONE (13:31)
--- NOTE | 2022-09-07 14:07 | ER ---
Nurse's Notes [facility] Name: Aniceto Ledesma II Age: 51 yrs Sex: Male : 1970 Arrival Date: 09/07/2022 Time: 11:27 Bed 5 Private MD: Diagnosis: Vomiting Presentation: 09/07 11:31 Chief complaint: Patient states: he has been having intermittent chest pain for 2 days, ap3 that is brought on by eating or drinking. patient denies any pain at this time. Coronavirus screen: At this time, the client does not indicate any symptoms associated with coronavirus-19. Ebola Screen: No symptoms or risks identified at this time. Initial Sepsis Screen: Does the patient meet any 2 criteria? No. Patient's initial sepsis screen is negative. Does the patient have a suspected source of infection? No. Patient's initial sepsis screen is negative. Risk Assessment: Do you want to hurt yourself or someone else? Patient reports no desire to harm self or others. Onset of symptoms was September 05, 2022. 11:31 Method Of Arrival: EMS: [facility] ap3 11:31 Acuity: FRANCISCA 3 ap3 11:37 Care prior to arrival: IV initiated. 18 GA, in the right antecubital area. ap3 Triage Assessment: 11:36 General: Appears in no apparent distress. distressed, comfortable, Behavior is calm, ap3 cooperative, appropriate for age. Pain: Complains of pain in chest Pain currently is 0 out of 10 on a pain scale. Is intermittent. Neuro: Level of Consciousness is awake, alert, obeys commands, Oriented to person, place, time, situation. Cardiovascular: Patient's skin is warm and dry. Respiratory: Airway is patent Respiratory effort is even, unlabored, Respiratory pattern is regular, symmetrical. Historical: - Home Meds: 11:32 gabapentin 100 mg oral capsule once [Active]; lisinopril 5 mg Oral tablet daily ap3 [Active]; magnesium oxide 420 mg Oral tablet once [Active]; naltrexone 50 mg oral tablet daily [Active]; propranolol 20 mg Oral tablet 2 times per day [Active]; sertraline 100 mg oral tablet daily [Active]; sumatriptan succinate 25mg tab as needed [Active]; - PMHx: 11:32 etoh abuse; Hypertensive disorder; PTSD; Diabetes mellitus; Depressive disorder; ap3 - Immunization history:: Client reports having NOT received the Covid vaccine. - Social history:: Smoking status: Patient denies any tobacco usage or history of. Screenin:37 [facility] ED Fall Risk Assessment (Adult) History of falling in the last 3 months, ap3 including since admission No falls in past 3 months (0 pts). Abuse screen: Denies threats or abuse. Nutritional screening: No deficits noted. Tuberculosis screening: No symptoms or risk factors identified. Vital Signs: 11:31 BP 135 / 91; Pulse 116; Resp 18; Temp 98.8; Pulse Ox 96% ; Weight 63.5 kg; Height 63 ap3 in. ; Pain 0/10; 13:26 BP 137 / 90; Pulse 88; Resp 17; Pulse Ox 97% ; ap3 11:31 Body Mass Index 24.80 (63.50 kg, 160.02 cm) ap3 11:31 Pain Scale: Adult ap3 ED Course: 11:27 Patient arrived in ED. ap3 11:30 Jose Alfredo Kirby is Attending Physician. sk4 11:30 EKG done, by ED staff, reviewed by Jose Alfredo Kirby. em1 11:31 Meli Salazar, RN is Primary Nurse. ap3 11:32 Triage completed. ap3 11:37 Arm band placed on right wrist. ap3 11:37 Patient has correct armband on for positive identification. Placed in gown. Bed in low ap3 position. Call light in reach. Side rails up X 1. school bus monitor on. Pulse ox on. NIBP on. Door closed. Noise minimized. 11:37 Maintain EMS IV. Dressing intact. Good blood return noted. Site clean \T\ dry. Gauge \T\ ap 3 site: 18g right ac. 12:33 XRAY CXR (1 view) In Process Unspecified. EDMS 14:39 No provider procedures requiring assistance completed. IV discontinued, intact, ap3 bleeding controlled, No redness/swelling at site. Pressure dressing applied. Administered Medications: 11:38 Drug: NS 0.9% IV 1000 ml Route: IV; Rate: 125 ml/hr; Site: right antecubital; ap3 14:40 Follow up: Response: No adverse reaction ap3 14:40 Follow up: Response: No adverse reaction ap3 11:43 Drug: Ondansetron IVP 4 mg Route: IVP; Site: right antecubital; ap3 14:40 Follow up: Response: No adverse reaction ap3 13:26 Drug: Pantoprazole IVP 40 mg Route: IVP; Site: right antecubital; ap3 14:40 Follow up: Response: No adverse reaction ap3 Medication: 14:39 VIS not applicable for this client. ap3 Outcome: 14:06 Discharge ordered by MD. mccoy 14:39 Discharged to home ambulatory. ap3 14:39 Condition: good 14:39 Discharge instructions given to patient, Instructed on discharge instructions, follow up and referral plans. medication usage, Demonstrated understanding of instructions, follow-up care, medications, Prescriptions given X 1. 14:39 Patient left the ED. ap3 Signatures: Dispatcher [employer] EDDonato Thornton em1 Meli Salazar, RN RN ap3 Jose Alfredo Kirby4
--- NOTE | 2022-09-07 14:07 | EDPHYS ---
Physician Documentation [facility] Name: Aniceto Ledesma II Age: 51 yrs Sex: Male : 1970 Arrival Date: 09/07/2022 Time: 11:27 Bed 5 Private MD: ED Physician Jose Alfredo Kirby HPI: 09/07 12:03 This 51 yrs old Male presents to ER via EMS with complaints of nausea/vomiting. sk4 12:03 here for n/v x 2 days. nonbloody nonbilious. no abd pain. has some central chest pain sk4 which feels like heartburn that he has experienced multiple times. hasn't been able to keep anxiety and bp meds down. no diarrhea. no concern for food poisoning. no travel. no sick contacts. . Historical: - Home Meds: 11:32 gabapentin 100 mg oral capsule once [Active]; lisinopril 5 mg Oral tablet daily ap3 [Active]; magnesium oxide 420 mg Oral tablet once [Active]; naltrexone 50 mg oral tablet daily [Active]; propranolol 20 mg Oral tablet 2 times per day [Active]; sertraline 100 mg oral tablet daily [Active]; sumatriptan succinate 25mg tab as needed [Active]; - PMHx: 11:32 etoh abuse; Hypertensive disorder; PTSD; Diabetes mellitus; Depressive disorder; ap3 - Immunization history:: Client reports having NOT received the Covid vaccine. - Social history:: Smoking status: Patient denies any tobacco usage or history of. ROS: 12:03 Constitutional: Negative for fever, chills, and weight loss. sk4 12:03 Abdomen/GI: Positive for vomiting. Exam: 12:03 Constitutional: This is a well developed, well nourished patient who is awake, alert, sk4 and in no acute distress. Chest/axilla: Normal chest wall appearance and motion. Nontender with no deformity. No lesions are appreciated. Cardiovascular: Regular rate and rhythm with a normal S1 and S2. No gallops, murmurs, or rubs. Normal PMI, no JVD. No pulse deficits. Respiratory: Lungs have equal breath sounds bilaterally, clear to auscultation and percussion. No rales, rhonchi or wheezes noted. No increased work of breathing, no retractions or nasal flaring. Abdomen/GI: Soft, non-tender, with normal bowel sounds. No distension or tympany. No guarding or rebound. No evidence of tenderness throughout. Back: No spinal tenderness. No costovertebral tenderness. Full range of motion. Skin: Warm, dry with normal turgor. Normal color with no rashes, no lesions, and no evidence of cellulitis. MS/ Extremity: Pulses equal, no cyanosis. Neurovascular intact. Full, normal range of motion. 14:03 ECG was reviewed by the Attending Physician. sk4 Vital Signs: 11:31 BP 135 / 91; Pulse 116; Resp 18; Temp 98.8; Pulse Ox 96% ; Weight 63.5 kg; Height 63 ap3 in. ; Pain 0/10; 13:26 BP 137 / 90; Pulse 88; Resp 17; Pulse Ox 97% ; ap3 11:31 Body Mass Index 24.80 (63.50 kg, 160.02 cm) ap3 11:31 Pain Scale: Adult ap3 MDM: 12:03 Differential diagnosis: Nonspecific abd pain, gastritis, viral gastroenteritis, sk4 gastroenteritis, acs. Data reviewed: vital signs, nurses notes, lab test result(s), EKG, radiologic studies. I considered the following discharge prescriptions or medication management in the emergency department Medications were administered in the Emergency Department. See MAR. 14:03 Independent interpretation of the following test(s) in the Emergency Department EKG: 4 See my EKG interpretation above. Test considered but Not performed: CT: offered ct chest/abd/pelvis given elevated wbc. discussed poss of acute pathology not yet diagnosed and inability to diagnose wtihout doing further testing. tolerating po. no abd tenderness throughout. feels baseline. heart rate elevated however pt hasn't taken propranolol in 2-3 days. discussed poss of sepsis, bacteremia, and other pathology. understands benefit of staying incl but not limited to further testing, treatment, observation, consultation. will return if changes mind. . Counseling: I had a detailed discussion with the patient and/or guardian regarding: lab results, radiology results, to return to the emergency department if symptoms worsen or persist or if there are any questions or concerns that arise at home. Response to treatment: the patient's condition has returned to base line. Refusal of service: The patient/guardian displays adequate decision making capability and despite a detailed discussion of alternatives, benefits, risks, and consequences refuses: CT Scan. 14:06 Patient medically screened. 4 09/07 11:36 Order name: CBC with Diff; Complete Time: 12:22 sk4 09/07 11:36 Order name: Basic Metabolic Panel; Complete Time: 12:22 sk4 09/07 11:36 Order name: Troponin High Sensitivity; Complete Time: 12:22 sk4 09/07 11:36 Order name: XRAY CXR (1 view); Complete Time: 13:02 sk4 EC:03 Rhythm is irregular. No ST changes noted. sk4 Administered Medications: 11:38 Drug: NS 0.9% IV 1000 ml Route: IV; Rate: 125 ml/hr; Site: right antecubital; ap3 14:40 Follow up: Response: No adverse reaction ap3 14:40 Follow up: Response: No adverse reaction ap3 11:43 Drug: Ondansetron IVP 4 mg Route: IVP; Site: right antecubital; ap3 14:40 Follow up: Response: No adverse reaction ap3 13:26 Drug: Pantoprazole IVP 40 mg Route: IVP; Site: right antecubital; ap3 14:40 Follow up: Response: No adverse reaction ap3 Disposition Summary: 09/07/22 14:06 Discharge Ordered Location: Home sk4 Problem: new sk4 Symptoms: have improved sk4 Condition: Stable sk4 Diagnosis - Vomiting sk4 Discharge Instructions: - Discharge Summary Sheet sk4 - Nausea and Vomiting, Adult sk4 Forms: - Work release form sk4 - Medication Reconciliation Form sk4 - Thank You Letter sk4 - Antibiotic Education sk4 - Prescription Opioid Use sk4 Prescriptions: - Zofran 4 mg Oral Tablet - take 1 tablet by ORAL route every 12 hours As needed; 20 tablet; Refills: 0, sk4 Product Selection Permitted Signatures: Dispatcher [employer] Meli Abraham RN RN [email or web address] Jose Alfredo Kirby 4
[2022-09-07 14:45] VITALS: TEMP 98.8
[2022-09-07 14:46] VITALS: BP 137/90; O2SAT 97
--- NOTE | 2022-09-08 11:03 | EKG ---
Test Date: 2022-09-07 Test Time: 11:25:56 Social Work Associate: STEFFI MEASUREMENT RESULTS: Intervals: Rate: 100 UT: 114 QRSD: 82 QT: 334 QTc: 430 [place]: P: 76 UT: 114 QRS: 79 T: 66 INTERPRETIVE STATEMENTS: Normal sinus rhythm Normal ECG Compared to ECG 07/28/2022 14:03:56 Sinus tachycardia no longer present Electronically Signed On 09-08-22 11:01:38 CDT by Artem Reyes
== END 2022-09-07 14:39 | disposition home or self-care (01) ==
LOC: ER 11:27
DX: R11.10 Vomiting, unspecified (principal); E11.9 Type 2 diabetes mellitus without complications; I10 Essential (primary) hypertension
CPT/HCPCS: 85025; 80048; 36415; 84484; 71045; C9113; J2405; 93005; 96374; 96375; 99285